=== PATIENT | female | born 1955 | race Caucasian/White ===

== ENCOUNTER → 2017-10-29 15:43 | Outpatient (CLI) | payer BC, SELFPAY ==
--- NOTE | 2017-10-29 15:47 | MM_ITS ---
MM Dig screening mamm BI w/CAD CAD Screening ORDERING PHYSICIAN : Angeles Mao PATIENT AGE: 62 years GENDER: Female COMPARISON: Previous mammograms: 04/2017, 2010, August 2015, 2013 INDICATION: Routine screening TECHNIQUE: Standard CC and MLO images were obtained. R2 CAD reviewed. FINDINGS: Stable mild asymmetry are slightly more pronounced now minor density in the upper-outer quadrant right breast than left. Similar to previous studies. Prior 2015 mammogram provides the best example of for stable appearance . RIGHT BREAST:Stable nodular density at the medial central breast labeled a measures~6 mm Nodular density labeled B at the lateral right breast measures 6 mm. At 2 appears to be long-standing stable feature can be followed. Left noted deep actually breast on cc view of is stable since 2010 as well. No significant new findings. Follow-up in one year bilateral LEFT BREAST:No significant new findings. IMPRESSION: No interval change. No new areas of concern Stable bilateral mammogram. Stable nodularity right breast\ Follow-up one year recommended BI-RADS Category: 2 Benign Finding(s) RECOMMENDED FOLLOW-UP: 1YR - 1 YEAR FOLLOW-UP (A letter has been sent to the patient regarding results of the study.)
== END ==
PROVIDERS: Family Provider Family Medicine; PCP Family Medicine; Visit Provider Nurse Practitioner
DX: Z12.31 Encounter for screening mammogram for malignant neoplasm of breast (principal)
CPT/HCPCS: 77067

== ENCOUNTER → 2019-03-21 09:35 | Outpatient (CLI) | payer BC, SELFPAY ==
--- NOTE | 2019-03-21 09:38 | MM_ITS ---
MM Dig screening mamm BI w/CAD CAD Screening COMPARISON: Digital mammograms with CAD 10/29/2017 and 10/02/2016 INDICATION: There is no personal or family history of breast cancer TECHNIQUE: Standard CC and MLO images were obtained. R2 CAD reviewed. FINDINGS: Moderate diffuse fibroglandular densities are seen throughout both breasts. There is stable nodularity right breast as described previously. There is stable density axillary tail right breast likely a low-lying node. There is no new or suspicious lesion and there are no suspicious microcalcifications. IMPRESSION: Fibrofatty parenchyma with no suspicious lesion seen BI-RADS Category: 2 Benign Finding(s) RECOMMENDED FOLLOW-UP: 1YR - 1 YEAR FOLLOW-UP (A letter has been sent to the patient regarding results of the study.)
== END ==
PROVIDERS: PCP Family Medicine; Visit Provider Nurse Practitioner
DX: Z12.31 Encounter for screening mammogram for malignant neoplasm of breast (principal)
CPT/HCPCS: 77067

== ENCOUNTER → 2020-04-19 13:09 | Outpatient (CLI) | payer BC, SELFPAY ==
--- NOTE | 2020-04-19 13:13 | MM_ITS ---
PROCEDURE: MM DIG SCREENING MAMM BI W/CAD Digital Breast Tomosynthesis Included CLINICAL INDICATION: SCREENING There is no personal or family history of breast cancer.. COMPARISON: [facility] DIG MAMM-SCREEN JOSE A W/CAD from 10/02/2016 [facility] MM Dig screening mamm BI w/CAD from 10/29/2017 DIG MAMM-SCREEN JOSE A from 03/21/2019 TECHNIQUE: Standard CC and MLO images and 3D Tomosynthesis was obtained. R2 CAD reviewed. FINDINGS: Moderate diffuse fibroglandular densities are seen in both breasts. There is a possible new nodular lesion medial quadrant left breast at the 9 o'clock position seen on both projections and better seen on jenn images. Recommend the patient return for spot compression views and ultrasound for additional evaluation. There are no suspicious microcalcifications. IMPRESSION: Fibrofatty parenchyma with possible developing density left breast BI-RAD Category: 0 Need Additional Imaging Evaluation FOLLOW-UP: IMM Immediate Follow-up Recommended (A letter has been sent to the patient regarding results of the study.) Dictated by: Dr. David Rodríguez MD 04/22/2020 08:[address] David Rodríguez MD in [place] 04/22/2020 08:58
== END ==
PROVIDERS: PCP Family Medicine; Visit Provider Nurse Practitioner
DX: Z12.31 Encounter for screening mammogram for malignant neoplasm of breast (principal)
CPT/HCPCS: 77063; 77067

== ENCOUNTER → 2020-05-03 17:20 | Outpatient (CLI) | payer BC, SELFPAY | PROVIDERS: PCP Family Medicine; Visit Provider Nurse Practitioner Family | DX: Z03.818 Encounter for observation for suspected exposure to other biological agents ruled out (principal) | CPT/HCPCS: U0003 ==

== ENCOUNTER → 2020-05-21 13:28 | Outpatient (CLI) | payer BC, SELFPAY ==
--- NOTE | 2020-05-21 13:33 | MM_ITS ---
PROCEDURE: MM DIG MAMM DX UNILAT LT CAD Digital Breast Tomosynthesis Included CLINICAL INDICATION: ABN MAMM COMPARISON: [facility] MM Dig screening mamm BI w/CAD from 10/29/2017 MG DIG MAMM-SCREEN JOSE A from 03/21/2019 MG MM DIG SCREENING MAMM BI W/CAD from 04/19/2020 US US BREAST LT COMPLETE from 05/21/2020 TECHNIQUE: Standard CC and MLO images and 3D Tomosynthesis was obtained. R2 CAD reviewed. FINDINGS: Spot compression views in MLO and CC projection suggests at the possible density seen on the recent mammogram is actually secondary to with somewhat tortuous venous structure and not a true mass. No other abnormality is seen. IMPRESSION: Negative problem solving views and recommend the patient continue with yearly screening BI-RAD Category: 1 Negative FOLLOW-UP: 1YR 1 Year Follow-up (A letter has been sent to the patient regarding results of the study.) Dictated by: Dr. David Rodríguez MD 05/25/2020 10:03 Dr. David Rodríguez MD in [place] 05/25/2020 10:03
--- NOTE | 2020-05-21 13:33 | US_ITS ---
PROCEDURE: US BREAST LT COMPLETE CLINICAL INDICATION: ABN MAMM COMPARISON: No exams were available for comparison FINDINGS: Ultrasound images show a tiny and possibly septated cyst at the 10 o'clock position mid breast measuring 0.5 by 0.3 cm. A couple normal appearing nodes in the axilla. IMPRESSION: Essentially negative targeted ultrasound left breast and recommend the patient continue with yearly screening mammography Dictated by: Dr. David Rodríguez MD 05/25/2020 10:05 Dr. David Rodríguez MD in [place] 05/25/2020 10:05
== END ==
PROVIDERS: PCP Family Medicine; Visit Provider Nurse Practitioner Family
DX: R92.8 Other abnormal and inconclusive findings on diagnostic imaging of breast (principal)
CPT/HCPCS: 76641; 77061; 77065; G0279

== ENCOUNTER → 2021-07-30 17:17 | Outpatient (CLI) | payer OTHER, SELFPAY | PROVIDERS: PCP Family Medicine; Visit Provider Nurse Practitioner | DX: Z20.822 Contact with and (suspected) exposure to COVID-19 (principal); U07.1 COVID-19 | CPT/HCPCS: C9803; U0003; U0005 ==

== ENCOUNTER → 2021-08-02 09:42 | Outpatient (CLI) | payer OTHER, SELFPAY | PROVIDERS: PCP Family Medicine; Visit Provider Nurse Practitioner | DX: U07.1 COVID-19 (principal); Z23 Encounter for immunization | CPT/HCPCS: 96365 ==

== ENCOUNTER → 2021-08-05 08:58 | Outpatient (CLI) | payer OTHER, SELFPAY | PROVIDERS: PCP Family Medicine; Visit Provider Nurse Practitioner | DX: Z20.822 Contact with and (suspected) exposure to COVID-19 (principal) | CPT/HCPCS: C9803; U0003; U0005 ==